=== PATIENT | female | born 1975 | race African-American/Black ===

== ENCOUNTER 2016-10-25 19:32 | Emergency (ER) | payer SELFPAY ==
[2016-10-25 19:47] VITALS: RESP 20; O2SAT 99
[2016-10-25] MEDS ORDERED: OXYCODONE/APAP 5/325 TAB PO ONE (20:50)
--- NOTE | 2016-10-25 20:55 | EDPHY ---
H & P Smoking Status: Heavy smoker Time Seen by Provider: 10/25/16 20:21 HPI/ROS: CHIEF COMPLAINT: left pinky finger pain HISTORY OF PRESENT ILLNESS: 41-year-old female presents emergency department complaining of increased left pinky finger pain. Patient had surgery on this finger in [facility] 1 week ago, she has pins in place. Patient reports she slipped and fell while hiking today in caught herself with her left hand and she has had increased pain and throbbing since this time. Patient reports she has no more oxycodone from her surgeon. She took ibuprofen without relief. She denies other complaints. (Kelsi Guido) Physical Exam: GEN: Awake, alert, oriented, no acute distress RESP: nl resp effort MSK: Left pinky finger with limited range of motion due to condition, hands in place to medial and lateral aspect finger, mild swelling, no erythema, no drainage, no signs of infection (Kelsi Guido) Constitutional: Initial Vital Signs Temperature (C) 36.6 C 10/25/16 19:43 Heart Rate 93 10/25/16 19:43 Respiratory Rate 20 10/25/16 19:43 Blood Pressure 128/94 H 10/25/16 19:43 O2 Sat (%) 99 10/25/16 19:43 O2 Delivery Mode Room Air Allergies/Adverse Reactions: cyclobenzaprine HCl [From Flexeril] Allergy (Verified 10/25/16 19:47) phenytoin sodium [From Dilantin] Allergy (Verified 10/25/16 19:47) phenytoin sodium extended [From Dilantin] Allergy (Verified 10/25/16 19:47) Home Medications: Medication Instructions Recorded Tegretol 10/25/16 oxyCODONE/APAP 5/325 [Percocet 1 - 2 tab PO Q6H PRN #7 tab 10/25/16 5/325] MDM/Departure - MDM Diagnostics: Left pinky finger x-ray independently reviewed by me- Impression: Palmar dislocation of the DIP joint. Presumably this was not the position achieved postoperatively. If there are any old outside x-rays, we would be happy to review them to assess for interval change. Dictated By: Pradeep Carnes MD (Kelsi Guido) Procedures: A finger splint was applied. After application of the splint, I returned and re-examined the patient. The splint was adequately immobilizing the joint. The patients circulation and sensation were intact distal to the splint. (Kelsi Guido) Medications Given: Discontinued Medications Oxycodone/Acetaminophen (Percocet 5/325) 2 tab PO EDNOW ONE Stop: 10/25/16 20:51 Last Admin: 10/25/16 20:54 Dose: 2 tab Oxycodone/Acetaminophen (Percocet 5/325mg Prepack#4) 1 btl TAKEHOME EDNOW ONE Stop: 10/25/16 22:43 Last Admin: 10/25/16 22:51 Dose: 1 btl ED Course/Re-evaluation: I spoke with the resident hydroponics worker for the orthopedist Dr. Don in [facility]. I sent him the x-rays obtained in the ER today. He reports there is no change. New splint has been placed to her finger, she is discharged with a prescription for Percocet and told to follow up with her surgeon at 1st available appointment. (Kelsi Guido) I did not see this patient while she was in the emergency department. However her care was discussed with the nurse practitioner while the patient was in the department. I agree with treatment plan and management (Feilpe Cruz) - Depart Disposition: Home, Routine, Self-Care Clinical Impression: Injury of left little finger Qualifiers: Encounter type: subsequent encounter Qualified Code(s): S69.92XD - Unspecified injury of left wrist, hand and finger(s), subsequent encounter Condition: Good Instructions: Oxycodone/Acetaminophen (By mouth), Finger Fracture (ED) Additional Instructions: Rest, elevate, take 600mg of ibuprofen every 8 hours with food. Take percocet as needed for severe pain. Follow up with your surgeon on return home. Keep dressing and splint in place until your follow up appointment. I spoke with the orthopedist in [place], he reviewed your x-rays. There is no change. Prescriptions: oxyCODONE/APAP 5/325 [Percocet 5/325] 1 - 2 tab PO Q6H PRN #7 tab PRN Reason: Pain, Severe Referrals: Florencia Cruz [Other] - As per Instructions
[2016-10-25] MEDS ORDERED: OXYCODONE/APAP 5/325MG PREPACK#4 BTL TAKEHOME ONE (22:42)
[2016-10-25 22:56] VITALS: BP 126/80; PULSE 78; TEMP 98.8
== END 2016-10-25 22:56 | disposition home or self-care (01) ==
DX: S69.92XA Unspecified injury of left wrist, hand and finger(s), initial encounter (principal); W23.1XXA Caught, crushed, jammed, or pinched between stationary objects, initial encounter; Y93.01 Activity, walking, marching and hiking